=== PATIENT | female | born 1970 | race Caucasian/White ===

== ENCOUNTER 2024-02-22 17:15 | Emergency (ER) | payer BC, SELFPAY ==
[2024-02-22 17:17] VITALS: BP 149/92; PULSE 96; RESP 20; TEMP 37; O2SAT 98; BMI 30.2
--- NOTE | 2024-02-22 18:21 | ED.GENADULT ---
HPI - General Adult General Chief complaint: Neck Injury/Pain Stated complaint: Pain in neck/L arm Time Seen by Provider: 02/22/24 17:20 Source: patient Mode of arrival: ambulatory Limitations: no limitations History of Present Illness HPI narrative: Patient is a 53-year-old woman who presents for evaluation of pain in her left neck and trapezius. She says she woke up with just a twinge of pain and then shortly after getting up the pain got much worse. It is localized to this area for the most part. She has a little radiation just into the shoulder and shoulder blade. She is holding her head very still. She is able to turn a little bit to the right but turning it to the left worsens her pain. She says she has a lot of anxiety about moving her head at all because it increases the pain. She denies trauma. She does not have radicular symptoms, no weakness or numbness. She tried some ibuprofen and it did not relieve the pain. She has not had fevers or other systemic complaints. Related Data Home Medications Medication Instructions Recorded Confirmed Prilosec 02/22/24 Vitamin D (with calcium) 02/22/24 Previous Rx's Medication Instructions Recorded diazepam 10 mg tablet (Valium) 10 mg PO QHS PRN #10 tabs 02/22/24 diazepam 10 mg tablet (Valium) 10 mg PO QHS PRN #10 tabs 02/22/24 Allergies Allergy/AdvReac Type Severity Reaction Status Date / Time No Known Drug Allergies Allergy Verified 02/22/24 17:20 Review of Systems Status of ROS: Reports: 6 or more systems reviewed and unremarkable except as noted in History and below Exam Narrative: Exam Narrative: Vital signs as noted above. In general, an alert, tearful woman. Head: Normocephalic, atraumatic. Eyes: Pupils are equal reactive. Extraocular movements are full. Conjunctivae are normal. ENT: Mucous membranes are moist. Throat is normal. Neck: She holds her head fairly still, slightly cocked to the right. She has reproducible tenderness along the paracervical musculature in the lower left neck into the trapezius muscle on the left. There is palpable muscle spasm there. Heart: Regular rate and rhythm. No murmur or rub. Lungs: Clear bilaterally. No increased work of breathing, crackles or wheezes. Extremities: Well perfused. No edema. Pulses intact. Neurologic: Patient is alert and oriented to person and place. Speech is fluent. Face is symmetric. Moves all extremities equally. Strength is 5 of 5 throughout both upper extremities, sensation is intact to light touch. Affect: Normal. Skin: Warm and dry. Well perfused. No rash or lesion. Const: Vital Signs, click to edit/add: Vital Signs - 24 hr 02/22/24 17:17 Temperature 98.6 F Pulse Rate [Pulse Oximeter] 96 Respiratory Rate 20 Blood Pressure [Ri ght Upper Arm] 149/92 H Pulse Oximetry 98 Oxygen Delivery Me thod Room Air Documenting provider has reviewed patient's vital signs: yes Course Course ED Course: Overall, presentation is consistent with torticollis. She has not had any trauma, I do not think imaging is warranted. There is no evidence here of infection, no midline pain or tenderness, no radicular symptoms. She has palpable muscle spasm, and I think conservative treatment with nonsteroidals and muscle relaxers is an appropriate start. Discussed with her it typically takes at least a few days for these kinds of symptoms to significantly improve. She felt like she might feel better in a neck collar so we have given her a soft cervical collar to wear. I have recommended ibuprofen 400 mg plus Tylenol 1000 mg 3 times daily, and then I gave her prescription for Valium, recommended use of this at night primarily, can be used during the day but of less likely benefit and may cause sedation. If not improving over the next few days to week, she should be seen by her primary doctor. Return at any time to the emergency department for significant changes such as fever, weakness, numbness, etcetera. Vital Signs Vital signs: Initial Vital Signs Temperature 98.6 F 02/22/24 17:17 Temperature Source Temporal Artery Scan 02/22/24 17:17 Pulse Rate 96 02/22/24 17:17 Respiratory Rate 20 02/22/24 17:17 Blood Pressure 149/92 H 02/22/24 17:17 Blood Pressure Mean 111 H 02/22/24 17:17 Blood Pressure Position Sitting 02/22/24 17:17 Pulse Oximetry 98 02/22/24 17:17 Oxygen Delivery Method Room Air 02/22/24 17:17 Vital Signs Temperature 98.6 F 02/22/24 17:17 Pulse Rate 96 02/22/24 17:17 Respiratory Rate 20 02/22/24 17:17 Blood Pressure 149/92 H 02/22/24 17:17 Pulse Oximetry 98 02/22/24 17:17 Oxygen Delivery Method Room Air 02/22/24 17:17 Temperature 98.6 F 02/22/24 17:17 Pulse Rate 96 02/22/24 17:17 Respiratory Rate 20 02/22/24 17:17 Blood Pressure 149/92 H 02/22/24 17:17 Pulse Oximetry 98 02/22/24 17:17 Oxygen Delivery Method Room Air 02/22/24 17:17 Discharge Plan Discharge Clinical Impression: Acute torticollis Patient Disposition: Home, Self-Care Condition: Stable Instructions: Spasmodic Torticollis (ED) Additional Instructions: Ibuprofen 400 mg plus Tylenol 1000 mg 3 times daily. Valium at night for muscle relaxation and sleep. You can use this during the day, but it will likely not provide as much benefit and may be sedating. Continue with heat and or ice, consider massage. Topical products such as [place] balm, Rajinder-Chairez etcetera may be helpful as well. See your primary doctor if not gradually improving over the next week. For acute changes such as severe pain in your arm, weakness, numbness, fevers, return to the emergency department. Prescriptions: New diazepam [Valium] 10 mg tablet 10 mg PO QHS PRNQty: 10 0RF diazepam [Valium] 10 mg tablet 10 mg PO QHS PRNQty: 10 0RF Continued Prilosec Vitamin D (with calcium) Follow Up/Referrals: Lyndon Spivey MD [Primary Care Provider] - Stand Alone Forms: [employer] Info Instructions
== END 2024-02-22 18:01 | disposition home or self-care (01) ==
PROVIDERS: Emergency Provider Emergency Medicine; PCP Family Medicine
DX: M43.6 Torticollis (principal)
CPT/HCPCS: 99283; 99284

== ENCOUNTER 2024-12-26 08:00 | Outpatient (RCR) | payer BC, SELFPAY ==
--- OUTSIDE RECORDS SUMMARY | 2024-10-27 08:01 | XMS_ITS | Clinical Summary ---
Author Organization [facility] Address [address] [place] [address] Care Team Providers Care Deputy Program Manager Name Role Phone Lyndon Spivey MD Primary Care Provider [phone] Source Comments You are receiving this document as you are listed as the primary care provider,follow-up provider, or the patient has been referred to you for consultation.This is in compliance with the Medicare and[facility] EHR Incentive Program,which states Providers who transition their patient to another setting of careor provider of care or refers their patient to another provider of care shouldprovide summary care record for each transition of care or referral. [facility] Allergies Active Allergy Reactions Criticality Noted Date Comments Escitalopram Oxalate Other, see comments 2002 PN: Dizziness, sweating Gabapentin Hives 09/13/2015 Oxycodone-Acetaminophen Nausea And Vomiting 12/2002 Medications Medication Sig Dispensed Refills Start Date End Date Status fluticasone (AKA FLONASE) 50 MCG/ACT nasal solutionIndicatio ns:Nausea alone Place 2 sprays into each nostril daily (every 24 hours). 48 g 1 04/04/2015 Active Additional Information Patient not taking.Reported on 01/01/2020 omeprazole (PRILOSEC) 20 MG capsule TAKE 1 CAPSULE BY MOUTH DAILY(EVERY 24 HOURS) 90 capsule 0 08/12/2015 Active ondansetron (AKA ZOFRAN) 4 MG tabletIndications :[place]OR[place] WAN Fri Sep 13, 2015 3:17 PM Received from: [employer] Take 4 mg by mouth. 02/24/2011 Active HYDROcodone-aceta minophen (NORCO) 5-325 MG tablet Take 1-2 tablets by mouth every 6 hours as needed for Pain. 12 tablet 0 10/02/2015 Active Additional Information Patient not taking.Reported on 11/14/2019 nicotine (NICOTROL) 10 MG inhaler Inhale every 4 hours as needed. 1 cartridge by freq cont puffing for about 20min.Use 6-16 cartridges/day for12 wks.Reduce gradually 12 more wks if needed. Active cholecalciferol (VITAMIND3) 50 MCG (2000 UT) tablet Take 1 Tablet (2,000 Units) by mouth daily. Active alendronate (FOSAMAX) 70 MG tablet Take 1 Tablet (70 mg) by mouth once every week. 12/14/2022 Active VITAMIN B COMPLEX-C OR Active amoxicillin-clavu lanate (AUGMENTIN) 875-125 mg per tablet Take 1 Tablet by mouth two times a day for 7 days. 14 Tablet 10/26/2024 11/02/2024 Active Active Problems Problem Noted Date Diagnosed Date Ureteral stone 10/19/2019 Overview (10/19/2019): Added automatically from request for surgery [id number] Ureterolithiasis 10/13/2019 Overview (10/13/2019): Added automatically from request for surgery [id number] Tobacco use 09/13/2015 Urinary urgency 06/14/2014 Chronic low back pain 06/14/2014 Cervical high risk human pap illomavirus (HPV) DNA test positive 05/06/2013 Chronic sinusitis 02/25/2012 Nausea without vomiting 02/25/2012 Overview (06/16/2017): Nausea alone Hyperlipemia 02/25/2012 Esophageal reflux 03/31/2003 Overview (06/16/2017): Gastroesophageal Reflux Disease Endometriosis 03/31/2003 Overview (06/16/2017): Endometriosis NOS Migraine 03/31/2003 Overview (06/16/2017): Migraine Without Aura History of renal stone Resolved Problems Problem Noted Date Diagnosed Date Resolved Date Pain in limb 01/03/2004 05/18/2005 Overview (06/16/2017): LW Onset: 2002 ; Pain Leg Encounters Date Type Department Care Team Description 10/26/2024 5:40 PM MANAGER PULMONARY Office Visit [facility] [address] [place] [address] Olivia Tanner PA-C Acute non-recurrent pansinusitis from Last 3 Months Immunizations Name Administration Dates Next Due Flu Vac Preserv Free (3+yrs) 08/08/2012 TDAP (BOOSTRIX) 07/24/2014 Family History Medical History Relation Name Comments Cancer, Breast Paternal Grandmother Cancer, Ovary Negative Family History Relation Name Status Comments Father Alive Mother Alive Brother Alive Maternal Grandfather Maternal Grandmother Paternal Grandfather Paternal Grandmother Social History Tobacco Use Types Packs/Day Years Used Date Smoking Tobacco: Former Cigarettes 0.5 20 Smokeless Tobacco: Never Tobacco Cessation:Counseling Given: Not Answered Comments:Smoking History Packs/day: Alcohol Use Standard Drinks/Week Comments Yes 2 (1 standard drink = 0.6 oz pure alcohol) Alcoholic Drinks/day: Amount:1-2 drinks; Freq:=< Monthly; Sex and Gender Information Value Date Recorded Sex Assigned at Not on file Gender Identity Not on file Sexual Orientation Not on file Last Filed Vital Signs Vital Sign Reading Time Taken Comments Blood Pressure 151/87 10/26/2024 5:31 PM MANAGER PULMONARY Pulse 94 10/26/2024 5:31 PM MANAGER PULMONARY Temperature 37.2 C (98.9 F) 10/26/2024 5:31 PM MANAGER PULMONARY Respiratory Rate 18 10/26/2024 5:31 PM MANAGER PULMONARY Oxygen Saturation 99% 10/26/2024 5:31 PM MANAGER PULMONARY Inhaled Oxygen Concentration - - Weight 66.7 kg (147 lb) 10/19/2019 10:43 AM MANAGER PULMONARY Height 154.9 cm (5' 1) 10/19/2019 10:43 AM MANAGER PULMONARY Body Mass Index 27.78 10/19/2019 10:43 AM MANAGER PULMONARY Plan of Treatment Health Maintenance Due Date Last Done Comments Hep B Screening ([employer]) 1970 HIV Screening (Preventive Services) 1985 Adult Preventive Visit 1987 HepB (1) 1988 Colonoscopy 06/15/2016 06/15/2011 (Completed) Cervical Cancer Screening 09/13/20182014, 07/24/2014, 07/02/2014, Additional history exists Cholesterol 07/24/2019 07/24/2014, 04/25, 02/25/2012, Additional history exists Mammogram 09/16/2023 09/16/2022, 08/26, 08/27/2020, Additional history exists Influenza (#1) 2024 07/30/2021, 06/26, 08/14/2019, Additional history exists DTaP/Tdap/Td (3 - Tdap) 07/24/2024 07/24/2014, 02/20 Hep C Screening (Preventive Services) Completed 07/15/1999 Zoster/Shingles Completed 11/24/2019, 04/28/2019 COVID-19 Vaccine Completed 09/04/2024, 11/2022, 07/18/2022, Additional history exists HepA Aged Out No longer eligi ble based on patient's age to complete this topic Hib Aged Out No longer eligi ble based on patient's age to complete this topic IPV (Polio) Aged Out No longer eligi ble based on patient's age to complete this topic MCV4 Aged Out No longer eligi ble based on patient's age to complete this topic Pneumococcal Aged Out No longer eligi ble based on patient's age to complete this topic Medical Devices Implanted Type Area Paving Inspector Device Identifier Shelf Expiration Date Model / Serial / Lot Stent Ureteral [place] 6fr 24cm - [id number] Implanted:Qty: 1 on 10/13/2019 by Lino John MD at [facility] DEVICE Right: [employer] 11/02/2023 [id number] / 0000 / [id number] Stent Ureteral Inlay 6fr 24cm - [id number] Implanted:Qty: 1 on 11/09/2019 by Lino John MD at [facility] DEVICE Right: [employer] 10/07/2023 [id number] / / [id number] Procedures Procedure Name Priority Date/Time Associated Diagnosis Comments MM MAMMOGRAM SCREENING BILAT W CAD Routine 10/17/2015 11:12 AM MANAGER PULMONARY Breast screening ANATOMICAL PATH LIQUID BASED Routine 09/13/2015 3:41 PM MANAGER PULMONARY LIPID PANEL & DIRECT LDL (IF NEEDED) Routine 07/24/2014 11:21 AM CDT Screening for lipoid disorders HEPATITIS C ANTIBODY, WITH REFLEX Routine 07/15/1999 5:31 PM CDT from Last 3 Months or Most Recently Relevant to Health Maintenance Results * MM Mammogram Screening Bilat W CAD (10/17/2015 11:12 AM MANAGER PULMONARY) Anatomical Region Laterality Modality Breast Bilateral Mammography Impressions 10/17/2015 11:14 AM MANAGER PULMONARY : BI-RADS 1 Negative (overall) Follow Up Mammogram in 1 year - Bilateral The results and recommendations of this examination will be communicated to the patient by the [facility] and we will attempt to schedule any recommended imaging follow up with the patient. Narrative 10/17/2015 11:14 AM MANAGER PULMONARY Compared to: 05/31/2013 MM Mammogram Screening Bilateral W Cad, 02/12/2010 MM MAMMOGRAM DIGITAL SCRN W CAD Bilateral Breast Findings: Bilateral digital screening mammogram was performed. The breasts are heterogeneously dense, which may obscure small masses. No significant mass, calcifications or other abnormalities are seen in either breast. Procedure Note Daniel Maldonado MD - 06/24/2016 Compared to: 05/31/2013 MM Mammogram Screening Bilateral W Cad,02/12/2010 MM MAMMOGRAM DIGITAL SCRN W CAD Bilateral Breast Findings: Bilateral digital screening mammogram was performed. The breasts are heterogeneously dense, which may obscure small masses. No significant mass, calcifications or other abnormalities are seen in either breast. IMPRESSION : BI-RADS 1 Negative (overall) Follow Up Mammogram in 1 year - Bilateral The results and recommendations of this examination will be communicated to the patient by the [facility] and we will attempt to schedule any recommended imaging follow up with the patient. Royce Nava MD RAD KRISTIN * Pap Smear (09/13/2015 3:41 PM MANAGER PULMONARY) 09/13/2015 3:41 PM MANAGER PULMONARY Narrative HP CONVERSION - 09/23/2015 3:54 PM MANAGER PULMONARY FINAL GYNECOLOGICAL CYTOLOGY REPORT Pathology #: [id number] Date Obtained: 09/13/2015 Date Received: 09/16/2015 INTERPRETATION/RESULTS: Negative for Intraepithelial Lesion or Malignancy. SPECIMEN ADEQUACY: Satisfactory for Evaluation. Endocervical cells/transformation zone component present. Verified on 09/23/2015 by YOEL DÍAZ MD (electronic signature) CLINICAL NOTES: Abnormal bleeding: No, LMP: 08/25/15, Menstrual status: None Apply, Current form of therapy: None apply LIQUID BASED PAP SMEAR SPECIMEN TYPE: DIAGNOSTIC CERVICAL PAP TEST PLEASE NOTE: The pap smear is a screening test designed to aid in the detection of cervical cancer and its precursor lesions. It is not a diagnostic procedure and should not be used as the sole means of detecting cervical cancer. Both false-positive and false-negative reports may occur. End of Report Performed at [facility], [address] [place] [address] Transcriptions 12/03/2016 12:17 AM CSTNotes Recorded by Ainsley Watkins, NOÉ on 10/04/2015 at 11:50 AMDear Niurka,I am writing to let you know that your PAP and HPV result is negative. This means that your test result was normal. No cancer or precancerous cells were seen.Based on current cervical cancer screening recommendations, your next PAP and HPV should be in 3 years. Continue to schedule your annual preventive exams for your overall health.If you have questions about cervical cancer screening or your test results, callCervical Cancer Screening and Management [phone],Ainsley Watkins, RN on behalf ofDr. Shantel Clark, Medical DirectorOhiohealth Dublin Methodist Hospitalnathalia [place] Cervical Cancer Screening and Management Royce Nava MD LAB_1 HP CONVERSION * (ABNORMAL) Lipid Panel and Direct LDL(If Needed) (07/24/2014 11:21 AM CDT) Cholesterol 221(H) 0 - 200 mg/dL HP CONVERSION Triglycerides 226(H) 0 - 149 mg/dL HP CONVERSION HDL Cholesterol 44 >39 mg/dL HP CONVERSION Cholesterol/HDL Ratio Screen 5.0 HP CONVERSION LDL Calculated 132(H) 19 - 130 mg/dL HP CONVERSION Hours Fasting 12 HP CONVERSION 07/24/2014 11:2 1 AM CDT 07/24/2014 3:14 PM CDT Kin Isaac MD LAB_1 HP CONVERSION * Hepatitis C Antibody, with Reflex (07/15/1999 5:31 PM CDT) Hepatitis C Antibody Non Reac Non Reac HP CONVERSION 07/15/1999 5:31 PM CDT Nicolas Robles MD LAB_1 HP CONVERSION from Last 3 Months or Most Recently Relevant to Health Maintenance Advance Directives * Full Code (Latest Code Status on File) Date Activated Date Inactivated Comments 10/13/2019 1:30 PM 10/14/2019 2:34 PM Care Teams Deputy Program Manager Relationship Specialty Start Date End Date Lyndon Spivey MD [address] [place] [address] PCP - General 09/13/15
--- OUTSIDE RECORDS SUMMARY | 2024-10-27 08:01 | XMS_ITS | Continuity of Care Document ---
Author Name [facility] User [facility] Address Unknown Organization Unknown Address Unknown Alerts, Allergies and Adverse Reactions FILTER APPLIED:All Known Active Allergies Substance Reaction Onset Status (GABAPENTIN) HIVES (Severe), Pruritis (Severe) 2014 Active (ESCITALOPRAM) Nausea (Mild), Unknown (Mild) Active (OXYCODONE-ACETAMINOPHEN) Nausea (Mild) A ctive Procedures FILTER APPLIED:Only known Procedures with Onset Date within the last 5 years Procedure Date Procedure Provider Additional Inform ation Status CALCIUM (05349) Complete d CREATININE (71050) Compl eted EMERGENCY DEPT VISIT LOW MDM (10859) Completed Encounters FILTER APPLIED:Only known Encounters with Admission Date within the last 5 years Encounter Location Admission Discharge Billing Code Creative Writing Teacher A [facility]ender Emergency [facility] [id number] [facility] Unknown [id number] [facility]
--- OUTSIDE RECORDS SUMMARY | 2024-10-27 08:01 | XMS_ITS | Encounter Summary ---
Author Organization [employer] Address [address] [place] [address] Care Team Providers Care Grant Officer Name Role Phone Lyndon Spivey MD Primary Care Provider [phone] Reason for Visit * Reason Comments CONGESTION, SINUS Encounter Details Date Type Department Care Team (Late st Contact Info) Description 10/26/2024 5:40 PM EAR[employer]UC[employer] WORK[employer] Office Visit [facility] [address] [place] [address] Olivia Tanner, PA-C [address] [place] [address] Acute non-recurrent pansinusitis Social History Tobacco Use Types Packs/Day Years Used Date Smoking Tobacco: Former Cigarettes 0.5 20 Smokeless Tobacco: Never Comments:Smoking History Pac ks/day: Alcohol Use Standard Drinks/Week Comments Yes 2 (1 standard drink = 0.6 oz pure alcohol) Alcoholic Drinks/day: Amount:1-2 drinks; Freq:=< Monthly; Sex and Gender Information Value Date Recorded Sex Assigned at Not on file Gender Identity Not on file Sexual Orientation Not on file documented as of this encounter Last Filed Vital Signs Vital Sign Reading Time Taken Comments Blood Pressure 151/87 10/26/2024 5:31 PM E[employer] WORKER Pulse 94 10/26/2024 5:31 PM EAR[employer]IL[employer] WORKER Temperature 37.2 C (98.9 F) 10/26/2024 5:31 PM EAR[employer]ILDHO[employer]UCATION WORKER Respiratory Rate 18 10/26/2024 5:31 PM E[employer]UC[employer] WORKER Oxygen Saturation 99% 10/26/2024 5:31 PM EAR[employer]UC[employer] WORKER Inhaled Oxygen Concentration - - Weight - - Height - - Body Mass Index - - documented in this encounter Progress Notes * Olivia Tanner PA-C - 10/26/2024 5:40 PM CST SUBJECTIVE: Niurka Hardy is a 54 y.o.female who presents to clinic with concern for nasal congestion and drainage with sinus pain and pressure symptoms started 10 days ago and are worsening. She didhave possible fevers initially none since then. She also has had hoarseness to her voice. She has had a COVID test at home which was negative she has also been using [id number] cough suppressant of choice. States that she has had numerous sinus infections before and it feels similar to but ithas been quite awhile since she did have a sinus surgery with good success. She has been trying [id number] medicine without relief Social history: Social History Tobacco Use Smoking status: Former Current packs/day: 0.50 Average packs/day: 0.5 packs/day for 20.0 years (10.0 ttl pk-yrs) Types: Cigarettes Smokeless tobacco: Never Tobacco comments: Smoking History Packs/day: Vaping Use Vaping status: Never Used Substance Use Topics Alcohol use: Yes Alcohol/week: 2.0 standard drinks of alcohol Types: 2 Glasses of wine per week Comment: Alcoholic Drinks/day: Amount:1-2 drinks; Freq:=< Monthly; Drug use: No Past Medical History: Past Medical History: Diagnosis Date Cervical high risk human papillomavirus (HPV) DNA test positive 05/06/2013 Endometriosis GERD (gastroesophageal reflux disease) History of renal stone Ovarian cyst STD (sexually transmitted disease) ([facility]) 2013 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 A&O x3. Skin: MMM, no rashes Eyes: Sclera white, conjunctiva pink, cornea and lenses are clear. PERRLA, EOMI bilaterally fundi are benign bilaterally Nose: Congested Sinuses: Bilateral frontal and maxillary sinuses are tender to percussion. No obvious swelling. Ears: Canals normal without lesions. TMs: Pearly spring, bulging with serous fluid Pharynx: Moist mucous membranes without lesions, erythema, or exudate, with purulent postnasal drainage. Neck: Supple, no LAD Respiratory: Normal respiratory effort. Lungs are clear with good breath sounds. Heart: RR without murmurs, rubs, or gallops. Labs: @EDLABS@ Orders Placed This Encounter amoxicillin-clavulanate (AUGMENTIN) 875-125 mg per tablet ASSESSMENT: 1. Acute non-recurrent pansinusitis PLAN: I discussed my findings and concerns of the patient I explained that I do think she has a sinus infection we will treat with antibiotics patient was put on Augmentin twice daily for 7 days. Sinus irrigation was discussed. Use OTC analgesics, oral decongestants, and decongestant nasal spray (maximum4 days, side effects discussed). Decrease dairy products while congested. Hot shower prior to bed time. RTC PRN if not gradually improving. The patient was discharged ambulatory and in stable condition. @EDMEDS@ Medications Prescribed this Visit Disp Refills Start End amoxicillin-clavulanate (AUGMENTIN) 875-125 mg per tablet 14 Tablet 0 10/26/2024 11/02/2024 Take 1 Tablet by mouth two times a day for 7 days. Oral Discharge Instructions None [employer] documented in this encounter Nursing Notes * Anand Patton RN - 10/26/2024 5:40 PM CST Pt c/o nasal pressure, sinus pressure, headache, and fevers at nighttime Sx for 1.5 weeks started off as a ST that has now turned into loss of voice Negative at home covid test OTC-cough syrup [employer] WORK[employer] documented in this encounter Plan of Treatment Not on file documented as of this encounter Visit Diagnoses Diagnosis Acute non-recurrent pansinusitis documented in this encounter Care Teams Grant Officer Relationship Specialty Start Date End Date Lyndon Spivey MD [address] [place] [address] PCP - General 09/13/15 documented as of this encounter
--- OUTSIDE RECORDS SUMMARY | 2024-10-27 08:01 | XMS_ITS | Clinical Summary ---
Author Organization [employer] [facility] Address [place], [place] [address] Care Team Providers Care Refrigeration Tech Name Role Phone Lyndon Spivey MD Primary Care Provider Dorothy Santiago MD Unavailable [phone] Monika Gamez NP Unavailable Chioma Salcido Unavailable Allergies Active Allergy Reactions Criticality Noted Date Comments Escitalopram Oxalate Nausea Only 11/04/2015 Dizziness, sweating Dizziness, sweating Gabapentin Itching,Hives 09/13/2015 Oxycodone *Unknown 08/02/2020 Oxycodone-Acetaminophen Nausea And Vomiting 12/2002 Medications Omeprazole 20 mg tablet Take 1 tablet by mouth once daily. 0 9 Active cholecalciferol (VITAMIN D-3) 2,000 unit capsuleIndications :Vitamin D insufficiency Take 1 capsule by mouth once daily. 0 0 Active ondansetron (ZOFRAN) 4 mg tablet Take 4 mg by mouth. 1 Active Active Problems Problem Noted Date Diagnosed Date Pap smear for cervical cancer screening 06/30/20 22 Overview (06/30/2022): 02/2012, 04/2013 NIL/HPV+ 06/2014 NIL/HPV+, 16/18 negative 06/2014 [place]elope: Atypical squamous metaplasia, not fully diagnostic of dysplasia; ECC:negative 08/2015, 12/2016, 03/2022 NIL/HPV negative Plan: Pap/HPV due 03/2027 Adrenal nodule 06/17/2022 Age-related osteoporosis wit hout current pathological fracture 05/12/2022 Osteoporosis 04/28/2022 Insomnia secondary to chronic pain 09/13/2015 Annular tear of lumbar disc 07/11/2015 Hyperlipidemia 06/14/2015 Midline low back pain without sciatica 5 Tobacco use disorder 05/23/2015 Right ovarian cyst 02/23/2011 Overview (02/23/2011): Hemorrhagic - right Kidney stone on right side 02/22/2011 Depression 02/22/2011 GERD (gastroesophageal reflux disease) 1 Encounters Date Type Department Care Team Description 09/25/2024 1:42 PM OPERATOR SUPPLY - 09/25/2024 11:59 PM OPERATOR SUPPLY Hospital Encounter [facility] [address] [place] [address] Chioma Salcido MBBS Osteoporosis, unspecified osteoporosis type, unspecified pathological fracture presence (Primary Dx); Age-related osteoporosis without current pathological fracture 09/25/2024 1:29 PM OPERATOR SUPPLY - 09/25/2024 1:41 PM OPERATOR SUPPLY Hospital Encounter [facility] [address] [place] [address] Richard Salcido MD Acharya, Nisha, MBBS Osteoporosis, unspecified osteoporosis type, unspecified pathological fracture presence 09/25/2024 Travel 08/21/2024 9:15 AM CDT Ancillary Procedure [facility] [address] [place] [address] 08/21/2024 9:00 AM CDT Ancillary Procedure [facility] [address] [place] [address] 08/21/2024 Travel 08/16/2024 Orders Only [facility] [address] [place] [address] Manoj Vela MD <No scans attached> 08/14/2024 8:00 AM CDT Office Visit [facility] [address] [facility] [address] [place] [address] Chioma Salcido MBBS Follow Up (Annual osteoporosis ) 08/14/2024 Travel from Last 3 Months Immunizations Name Administration Dates Next Due COVID-19 vaccine (Moderna Sammy ro 50mcg/0.25mL) PF, MDV 01/25/2022 COVID-19 vaccine (Pfizer-Bio NTech 30mcg/0.3mL) PF, MDV 02/08/2021,01/18/2021 Influenza Virus, Unspecified 07/23/2020 Influenza, IIV3 (Age >=3 years) 08/14/20 19,08/15/2014,08/16/2013,2011,08/17/2011,08/25/2010 Influenza, IIV4 07/30/2021,08/03/2016 Influenza, IIV4 (=>6mos) MDV 08/24/2017,08/14/20 15 Tdap 07/24/2014,02/21/2008 Zoster (Shingrix-RZV, recombinant) 11/24/2019, Family History Medical History Relation Name Comments Nephrolithiasis Brother Benign prostatic hyperplasia Father No Known Problems Mother Heart Disease Other maternal side, uncles and aunts Cancer-breast Paternal Grandmother Anesthesia Malignant Hyperthermia No Family History Anesthesia Problem No Family History Relation Name Status Comments Brother Alive Father Alive Mother Alive Other Paternal Grandmother Social History Tobacco Use Types Packs/Day Years Used Date Smoking Tobacco: Former Cigarettes 0.3 29.2 S tarted: 08/02/1995 Smokeless Tobacco: Never Tobacco Cessation:Counseling Given: Yes Alcohol Use Standard Drinks/Week Comments Not Currently 0 (1 standard drink = 0.6 oz pur e alcohol) PHQ-2 Answer Date Recorded PHQ-2 TOTAL SCORE 0 04/22/2022 Financial Resource Strain Answer Date R ecorded Difficulty of Paying Living Expenses Not on file 10/25/2021 Difficulty of Paying Living Expenses Not on file 10/25/2021 Interpersonal Safety Answer Date Record ed Are you being hit, kicked, p ushed or yelled at (see row info)? No 09/25/2024 Interpersonal Safety Abuse 12 - 18 Not on file 09/25/2024 Interpersonal Safety Ambulatory Vulnerability No t on file 09/25/2024 Comments No Sex and Gender Information Value Date Recorded Sex Assigned at Female 04/25/2020 11:24 AM CDT Legal Sex Female 6:03 AM OPERATOR SUPPLY Gender Identity Female 04/25/2020 11:24 AM CDT Sexual Orientation Straight 04/25/2020 11 :24 AM CDT Obstetrics History Para Term AB IAB SAB Ectopic Multiple Livin g Live Births 1 1 1 Date Outcome GA Total Labor Labor/2nd/3rd Weight Sex Type Anes PTL Lucille A1 A5 Name Clin SAB SPONTANE O US Last Filed Vital Signs Vital Sign Reading Time Taken Comments Blood Pressure 127/74 09/25/2024 2:34 PM OPERATOR SUPPLY Pulse 95 09/25/2024 2:34 PM OPERATOR SUPPLY Temperature 37.2 C (99 F) 09/25/2024 2:34 PM OPERATOR SUPPLY Respiratory Rate 16 09/25/2024 2:34 PM OPERATOR SUPPLY Oxygen Saturation 97% 09/25/2024 2:34 PM OPERATOR SUPPLY Inhaled Oxygen Concentration - - Weight 68.9 kg (152 lb) 08/14/2024 8:01 AM CDT Height 154.9 cm (5' 1) 09/25/2024 2:00 PM OPERATOR SUPPLY Body Mass Index 28.72 05/24/2023 9:03 AM CDT Plan of Treatment Upcoming Encounters Date Type Department Care Team (Late st Contact Info) Description 08/15/2025 8:15 AM CDT Office Visit [facility] [address] [facility] [address] [facility] [[email or web address] [address] [place] [address] Chioma Salcido MBBS [address] [facility] [address] [facility] [[email or web address] [address] [place] [address] Health Maintenance Due Date Last Done Comments HIV for age 15-65 1984 Pneumococcal series for age 50+ (1 of 1 - PCV) 2019 Depression screening for age 12+ 04/22/2023 04/22/2022, 04/23/2021, 04/22/2021, Additional history exists Mammogram for age 45-75 09/16/2023 09/16/20 22, 09/15/2021, 08/27/2020, Additional history exists BMI (ht and wt on same day) for age 18+ 05/24/2024 05/24/2023, 04/22/2022, 04/23/2021, Additional history exists Influenza for age 50-64 06/25/2024 07/30/20 21, 07/23/2020, 08/14/2019, Additional history exists Tetanus booster 07/24/2024 07/24/2014, 02/21/2008 Lipids for age 45-75 03/03/2027 03/03/2022, 08/26/2021, 05/01/2021, Additional history exists Pap test for age 21-65 04/22/2027 , 04/22/2022, 01/11/2017, Additional history exists Colonoscopy through age 75 02/17/2028 02/16/2023, Tdap Completed 07/24/2014, 02/21/2008 Zoster (shingles) series for age 50+ Completed 11/24/2019, 04/28/2019 Hepatitis C screening for ag e 18-79 Completed 08/26/2021 COVID-19 vaccine series Completed 09/04/20, 07/26/2023, 07/18/2022, Additional history exists Procedures Procedure Name Priority Date/Time Associated Diagnosis Comments CREATININE STAT 09/25/2024 1:36 PM OPERATOR SUPPLY Osteoporosis, unspecified osteoporosis type, unspecified pathological fracture presence CALCIUM STAT 09/25/2024 1:36 PM OPERATOR SUPPLY Osteoporosis, unspecified osteoporosis type, unspecified pathological fracture presence XR SPINE LUMBAR MINIMUM 4 VIEWS Routine 08/21/2024 9:01 AM CDT Pain of lumbar spine XR SPINE THORACIC 2 VIEWS Routine 08/21/2024 9:00 AM CDT Pain in thoracic spine VITAMIN D 25 (DEFICIENCY) Routine 08/14/2024 8:35 AM CDT Osteoporosis, unspecified osteoporosis type, unspecified pathological fracture presence CREATININE Routine 08/14/2024 8:35 AM CDT Osteoporosis, unspecified osteoporosis type, unspecified pathological fracture presence CALCIUM Routine 08/14/2024 8:35 AM CDT Osteoporosis, unspecified osteoporosis type, unspecified pathological fracture presence SCAN-COLONOSCOPY 02/16/2023 9:00 AM CDT XR MAMMO DEACON BILAT SCREEN Routine 09/16/2022 8:03 AM OPERATOR SUPPLY Encounter for screening for malignant neoplasm of breast, unspecified screening modality HPV HIGH RISK Routine 04/22/2022 1:22 PM CDT Screening for cervical cancer LIPID PANEL W REFLEX MEASURED LDL Routine 03/03/2022 7:57 AM CDT Hypertriglyceridemia ANTI HCV Routine 08/26/2021 10:36 AM CDT Need for hepatitis C screening test from Last 3 Months or Most Recently Relevant to Health Maintenance Results * CREATININE (09/25/2024 1:36 PM OPERATOR SUPPLY) Only the most recent of2 resultswithin the time period is included. eGFR >90 >90 mL/min/1.7 3m2 09/25/2024 2:[address] [facility] Comment:As of 2022, eG FR is calculated by the CKD-EPI creatinine equation without race adjustment. eGFR can be influenced by muscle mass, exercise, and diet. The reported eGFR is an estimation only and is only applicable if the renal function is stable. CREATININE 0.69 0.50 - 0.90 mg/dL 09/25/2024 2:[address] [facility] Blood BLOOD SPECIMEN / Unknown Venipuncture / Unknown 09/25/2024 1:36 PM OPERATOR SUPPLY 09/25/2024 1:38 PM OPERATOR SUPPLY us Chioma PORTILLO CHEMISTRY Final Result [facility] SENDOUT [place] [address]IP [id number] [address] [place] [address] * CALCIUM (09/25/2024 1:36 PM OPERATOR SUPPLY) Only the most recent of2 resultswithin the time period is included. CALCIUM 9.6 8.8 - 10.4 mg/dL 09/25/2024 2:[address] [facility] Comment: Reference ranges for this test were updated on 08/29/2024 to reflect our healthy population more accurately. Reference range changes are not retroactively applied to results, but previous results using the same methodology can be interpreted in the context of the new reference range. Blood BLOOD SPECIMEN / Unknown Venipuncture / Unknown 09/25/2024 1:36 PM OPERATOR SUPPLY 09/25/2024 1:38 PM OPERATOR SUPPLY us Chioma PORTILLO CHEMISTRY Final Result [facility] S[address]OUT [place] [id number] [address] [place] [address] * XR SPINE LUMBAR MINIMUM 4 VIEWS (08/21/2024 9:01 AM CDT) Anatomical Region Laterality Modality Spine, LUMBAR SPINE Digital Radi ography 08/21/2024 12:1 8 PM CDT Impressions 08/21/2024 12:18 PM CDT No acute fracture or acute malalignment of the lumbar spine. No abnormal motion. Dictated by Tito Vargas MD @ 08/21/2024 12:18:46 PM (Electronically Signed) Narrative 08/21/2024 12:18 PM CDT For Patients: As a result of the Cures Act, medical imaging exams and procedure reports are released immediately into your electronic medical record. You may view this report before your referring provider. If you have questions, please contact your health care provider. INDICATION: Pain of the lumbar spine. TECHNIQUE: Four views of the lumbar spine. This includes standing flexion and extension lateral views. FINDINGS: Five lumbar vertebral bodies without acute fractures. No acute malalignment. The disc interspaces are fairly well preserved. No abnormal motion on flexion or extension lateral views. Mild degenerative facet arthropathy mid to lower lumbar spine. Surgical clips right upper quadrant. Procedure Note Tito Vargas MD - 08/21/2024 For Patients: As a result of the s Act, medical imagingexams and procedure reports are released immediately into your electronicmedical record. You may view this report before your referring provider.If you have questions, please contact your health care provider. INDICATION: Pain of the lumbar spine. TECHNIQUE: Four views of the lumbar spine. This includes standing flexion andextension lateral views. FINDINGS: Five lumbar vertebral bodies without acute fractures. No acutemalalignment. The disc interspaces are fairly well preserved. No abnormalmotion on flexion or extension lateral views. Mild degenerative facetarthropathy mid to lower lumbar spine. Surgical clips right upperquadrant. IMPRESSION: No acute fracture or acute malalignment of the lumbar spine. No abnormalmotion. Dictated by Tito Vargas MD @ 08/21/2024 12:18:46 PM (Electronically Signed) Manoj Vela MD GENERAL IMAGING Final Result * XR SPINE THORACIC 2 VIEWS (08/21/2024 9:00 AM CDT) Anatomical Region Laterality Modality Spine, THORACIC SPINE Digital Ra diography 08/21/2024 12:2 0 PM CDT Impressions 08/21/2024 12:20 PM CDT Postsurgical change lower cervical spine to T6 with posterior fusion rods. Mild upper thoracic kyphosis. Dictated by Tito Vargas MD @ 08/21/2024 12:20:56 PM (Electronically Signed) Narrative 08/21/2024 12:20 PM CDT For Patients: As a result of the Cures Act, medical imaging exams and procedure reports are released immediately into your electronic medical record. You may view this report before your referring provider. If you have questions, please contact your health care provider. INDICATION: Thoracic spine pain. Prior surgery. TECHNIQUE: Two views of the thoracic spine. COMPARISON: Correlation is made with x-rays of the chest May 24, 2023. FINDINGS: Postsurgical change from posterior cervical thoracic fusion extending to the posterior elements of T6. No acute malalignment. Mild upper thoracic kyphosis. No acute compression fracture. No acute malalignment. Surgical clips in the right upper quadrant. Procedure Note Tito Vargas MD - 08/21/2024 For Patients: As a result of the Cures Act, medical imagingexams and procedure reports are released immediately into your electronicmedical record. You may view this report before your referring provider.If you have questions, please contact your health care provider. INDICATION: Thoracic spine pain. Prior surgery. TECHNIQUE: Two views of the thoracic spine. COMPARISON: Correlation is made with x-rays of the chest May 24, 2023. FINDINGS: Postsurgical change from posterior cervical thoracic fusion extending tothe posterior elements of T6. No acute malalignment. Mild upper thoracic kyphosis. No acute compressionfracture. No acute malalignment. Surgical clips in the right upper quadrant. IMPRESSION: Postsurgical change lower cervical spine to T6 with posterior fusion rods.Mild upper thoracic kyphosis. Dictated by Tito Vargas MD @ 08/21/2024 12:20:56 PM (Electronically Signed) Manoj Vela MD GENERAL IMAGING Final Result * VITAMIN D 25 (DEFICIENCY) (08/14/2024 8:35 AM CDT) VITAMIN D,25-OH,TOTAL,IA 82 30 - 100 ng/mL [facility] [place] Comment: Vitamin D Status 25-OH Vitamin D: Deficiency: <20 ng/mL Insufficiency: 20 - 29 ng/mL Optimal: > or = 30 ng/mL For 25-OH Vitamin D testing on patients on D2-supplementation and patients for whom quantitation of D2 and D3 fractions is required, the QuestAssureD(TM) 25-OH VIT D, (D2,D3), LC/MS/MS is recommended: order code 76770 (patients >2yrs). See Note 1 Note 1 For additional information, please refer to http://education.[employer].Keepskor/faq/OCM985 (This link is being provided for informational/ educational purposes only.) Blood BLOOD SPECIMEN / Unknown 08/14/2024 8:35 AM CDT 08/14/2024 8:36 AM CDT Chioma PORTILLO SEND OUTS Final Result [facility] [address] [place] [address], [facility] [address] [place] [address] * SCAN-COLONOSCOPY (02/16/2023 9:00 AM CDT) Narrative Procedure Note Ferdinand Castellano MD - 02/16/2023 7:41 AM CDT [facility], [address], [address], [place] [address] Patient Name: Niurka Hardy Gender: Female Exam Date: 02/16/2023 Visit Number: [id number] Age: 52 Years Date of : 1970 Attending MD: Ferdinand Castellano MD Medical Record#: [id number] Procedure: Colonoscopy Indications: Previous adenomatous polyp(s) Referring MD: Freddie Camargo MD Primary MD: Lyndon Spivey MD Medications: Admitting Medications: Ondansetron Hydrochloride (Zofran) given 4mg by IV Intra Procedure Medications: Patient received monitored anesthesia care. Complications: No immediate complications Procedure: An examination of the heart and lungs was performed and found to be withinacceptable limits. . The patient was therefore deemed a reasonablecandidate for endoscopy and sedation. The risks and benefits of the procedure were explained to the patient.After obtaining informed consent, the patient received monitoredanesthesia care and I passed the scope without difficulty via the rectum to the cecum. The appendiceal orificeand ic valve were identified. The scope was retroflexed during theexamination The quality of the prep was excellent (Florian/Gat/2 Bis). This was a complete examination throughout the entire colon. Findings: Polyp location: ascending colon-proximal. Quantity: 1. Size: 2 mm.Polyp shape: sessile. Maneuver: polypectomy was performed with a cold biopsy forceps. Removal: complete. Retrieval: complete. Bleeding: none. Diverticulosis. Location: - sigmoid. Description: mild. Size:small. Quantity: few. No inflammation present. Remainder of the exam is normal. Impression: Diverticulosis of colon without diverticulitis Colorectal polyp detected on colonoscopy MD impression comments: Mild sigmoid diverticulosis. Small polypresected as above awat path Preliminary Plan: The patient and their physician will receive a copy of the pathologyreport as well as pathology-based recommendations for future screening orsurveillance. Procedure: Upper GI Endoscopy Indications: Dysphagia Reflux Provider: Ferdinand Castellano MD Referring MD: Freddie Camargo MD Primary MD: Lyndon Spivey MD Medications: Admitting Medication: Ondansetron Hydrochloride (Zofran) given 4mg by IV Intra Procedure Medications: Patient received monitored anesthesia care. Complications: No immediate complications Procedure: An examination of the heart and lungs was performed within acceptablelimits. . The patient was therefore deemed a reasonable candidate forsedation. The risks and benefits were explained to the patient, who appeared tounderstand. After obtaining informed consent, the scope was passed underdirect vision. Throughout the procedure the patient's blood pressure,pulse and oxygen saturations were monitored. The scope was introducedthrough the mouth and advanced to the third portion of duodenum. Findings: Esophagus: Normal esophagus. Location: mid esophagus; Maneuver: biopsies were obtained Normal Location: distal esophagus; Maneuver: biopsies were obtained The z-line is 38 centimeters from the incisors. Top of the gastric foldsis 38 centimeters from the incisors. Stomach: The diaphragm hiatus is at 40 centimeters from the incisors. Small Hiatal Hernia. Normal mucosa. Stomach Polyp(s). Location: fundus. Quantity: few. Size: < 5mm. Shape:sessile. Removal: no removal. Duodenum: Normal duodenum. Celiac Sprue biopsies taken. Celiac Sprue biopsies taken. Impression: Hiatal hernia Chronic GERD MD Impression Comments: Patient had dysphagia/discomfort while onalendronate. This was stopped 3 mos ago, but she is still sensitive (notreally dysphagia). Bx'd esophagus for EoE, duodenum for celiac (patientrequest). If symptoms persist we would be happy to see you in clinic Preliminary Plan: Return to primary care provider Pathology Results: A: DUODENUM, BIOPSY: 1. Duodenal intraepithelial lymphocytosis characterized by: a. Patchy, mildly increased intraepithelial lymphocytes b. Normal villous architecture (Byrd 1) 2. See comment B: ESOPHAGUS, DISTAL, BIOPSY: 1. Normal squamous mucosa 2. Negative for reflux changes and eosinophilic esophagitis 3. Negative for columnar mucosa C: ESOPHAGUS, MID, BIOPSY: 1. Normal squamous mucosa 2. Negative for reflux changes and eosinophilic esophagitis 3. Negative for columnar mucosa D: COLON, ASCENDING, POLYP: 1. Tubular adenoma 2. Negative for high grade dysplasia 3. Per the colonoscopy report: a. Polyp size: 2 mm b. Resection: Complete c. Retrieval: Complete COMMENTS A. Duodenal intraepithelial lymphocytosis is an etiologically non- specificfinding; potential causes include celiac disease (gluten sensitiveenteropathy), Helicobacter gastritis, NSAID use, autoimmune disorders,bacterial overgrowth, Crohn's disease (particularly if focal enhancedgastritis is also present) and non-gluten protein intolerance. Less thanhalf of patients with this histologic finding are ultimately found to haveceliac disease. In this case, given the patchy and mild nature of thelymphocytosis, it may represent the upper limit of normal. However, useful avenues for further evaluation of possible celiac diseasecould include: a. Serum IgA level plus anti-TTG, anti-deamidated gliadin peptideand/or anti-endomysial IgA serology b. HLA genotyping (celiac disease is rare if DQ2 and DQ8 absent) c. Family history (celiac disease more likely if family history of celiac disease present) d. A trial of gluten restriction (if symptomatic); symptoms such as diarrhea, anemia may resolve even if serologies are negative) If this is subsequently proven to be celiac disease the findings on thisbiopsy would be consistent with a Byrd 1 lesion. Please contact us if you have questions ([facility] pathology Service, [phone] Specimen A was seen in consultation with Dr. Encarnacion. MICROSCOPIC A: Performed B: Performed C: Performed D: Performed. Deeper levels were examined. SPECIAL STAINING/DEEPER D: Deeper Electronically signed by: Sourav Mcconnell MD Interpreted at [facility] [place] [address] Orders Labs: Test Comments Timeframe Assessment Celiac: TTG IgA + Total IgA send order to [facility] FirstAvailable R10.13 Instruction(s)/Education: Instruction/Education Timeframe Assessment Colon Cancer Prevention K57.30 Colon Polyps K57.30 Diverticulosis/Diverticulitis K57.30 Final Plan: Repeat colonoscopy in 5 years. We will attempt to contact you at appropriate intervals via U.S. mail. Wemay not be able to find you or contact you at that time, therefore youshould know that the responsibility for following our recommendation restswith you. If you don't hear from us at the time your procedure is due,please contact our office to schedule an appointment. If your contactinformation should change, please contact our office so that we can updateyour record. Additional Comments: I would like to do a blood test for celiac disease to follow-up on theinflammation seen on biopsy. _Electronically signed by: Ge Da Silva MD 02/16/2023 cc: Lyndon Spivey MD cc: Freddie Camargo MD cc: Lyndon Spivey MD us Ferdinand Castellano MD OTHER Final R esult * XR MAMMO DEACON BILAT SCREEN (09/16/2022 8:03 AM OPERATOR SUPPLY) Anatomical Region Laterality Modality BREASTS, Breast Left, Breast Right Bilateral Mammography Impressions 09/16/2022 3:40 PM OPERATOR SUPPLY There is no radiographic evidence for malignancy. Recommend annual mammograms. MAMMOGRAM ASSESSMENT: ACR 1 Negative PATIENTS: You will also receive a letter with your examination results in an easy to read format. If you have questions about your results, please contact your referring provider. Narrative 09/16/2022 3:40 PM OPERATOR SUPPLY For Patients: As a result of the 21st Century Cures Act, medical imaging exams and procedure reports are released immediately into your electronic medical record. You may view this report before your referring provider. If you have questions, please contact your health care provider. XR MAMMO DEACON BILAT SCREEN [[id number]] CLINICAL HISTORY: This is an asymptomatic 52 y.o. patient. INDICATION FOR EXAM: Mammogram Screening. TECHNIQUE: CC & MLO views were obtained. This study was evaluated with the assistance of Computer-Aided Detection. Breast Tomosynthesis was used in interpretation. COMPARISON FILM: Yes [facility] FINDINGS: The breasts are heterogeneously dense, which may obscure small masses. There are no dominant masses, suspicious micro calcifications or areas of architectural distortion. Lyndon Spivey MD MAMMO Final Result * HPV HIGH RISK (04/22/2022 1:22 PM CDT) TYPE 16 Negative Negative 04/24/2022 1:52 PM CDT [facility] TYPE 18 Negative Negative 04/24/2022 1:52 PM CDT [facility] OTHER HIGH RISK TYPES Negative Negative 04/24/2022 1:52 PM CDT [facility] Other (Cervical/Vagina l) Non-Blood / Unknown 04/22/2022 1:22 PM CDT 04/23/2022 8:34 AM CDT Narrative [facility] - 04/24/2022 1:52 PM CDT HPV types 16, 18, 31, 33, 35, 39, 45, 51, 52, 56, 58, 59, 66 and 68 DNA were undetectable or below the pre-set threshold. Methodology: Sarina Silvio 4800 HPV Test Shakir Oscar MD MICROBIOLOGY F inal Result [facility] [address] [place] [address], * (ABNORMAL) LIPID PANEL W REFLEX MEASURED LDL (03/03/2022 7:57 AM CDT) CHOLESTEROL,TOTAL 231(H) 100 - 199 mg/dL 03/03/2022 3:29 PM CDT [facility] TRIGLYCERIDES 223(H) <150 mg/dL 03/03/2022 3:29 PM CDT [facility] HDL CHOLESTEROL 43 >40 mg/dL 3:29 PM CDT [facility] NON-HDL CHOLESTEROL 188(H) <145 mg/dl 03/03/2022 3:29 PM CDT [facility] CHOL/HDL RATIO 5.37(H) <4.50 03/03/2022 3:29 PM CDT [facility] LDL CHOLESTEROL 143(H) <=130 mg/dL 03/03/2022 3:29 PM CDT [facility] VLDL CHOLESTEROL 45(H) <=30 mg/dL 03/03/2022 3:29 PM CDT [facility] PROVIDER ORDERED STATUS RANDOM 03/03/2022 3:29 PM CDT [facility] Blood BLOOD SPECIMEN / Unknown Venipuncture / Unknown 03/03/2022 7:57 AM CDT 03/03/2022 7:59 AM CDT us Lyndon Spivey MD CHEMISTRY Final Result [facility] [address] [place] [address], * ANTI HCV (08/26/2021 10:36 AM CDT) Pathologist [facility] HEPATITIS C ANTIBODY Non-React jovanni Non-React jovanni 08/26/2021 7:14 PM CDT [facility] Comment:Antibodies to HCV no t detected; does not exclude the possibility of exposure to HCV. Blood BLOOD SPECIMEN / Unknown Venipuncture / Unknown 08/26/2021 10:36 AM CDT 08/26/2021 10:37 AM CDT us Lyndon Spivey MD SEND OUTS Final Result [facility] [address] [place] [address], from Last 3 Months or Most Recently Relevant to Health Maintenance Additional Health Concerns Infection Onset Date Last Indicated MRSA Comment:MRSA positive left breast-Contact Precautions indicated. 05/30/2012 05/30/2012 Insurance [place] Advance Directives * Full Code (Latest Code Status on File) Date Activated Date Inactivated Comments 02/22/2011 7:03 PM 02/24/2011 12:28 PM Care Teams Refrigeration Tech Relationship Specialty Start Date End Date Lyndon Spivey MD [address] [place] [address] PCP - General Family Practice 08/23/15 Dorothy Santiago MD [address] [place] [address] Hematology Hematology and Oncology 05/27/20 Monika Gamez, ZAKIA [address] [place] [address] Hematology Nurse Practitioner - Family 05/27/20 Chioma Salcido MBBS [address] [facility] [[email or web address]] [address] [place] [address] Endocrinology 07/21/23
== END 2024-12-26 08:41 | disposition home or self-care (01) ==
PROVIDERS: PCP Family Medicine; Visit Provider Orthopaedic Surgery Orthopaedic Surgery of the Spine
DX: M54.6 Pain in thoracic spine (principal); M54.50 Low back pain, unspecified; Z74.09 Other reduced mobility; M62.81 Muscle weakness (generalized); Z51.89 Encounter for other specified aftercare
CPT/HCPCS: 97032; 97110; 97112; 97140; 97161; 97530

== ENCOUNTER 2025-02-20 17:07 | Emergency (ER) | payer BC, SELFPAY ==
[2025-02-20 17:12] VITALS: BP 145/90; PULSE 119; RESP 20; TEMP 38.7; O2SAT 93; BMI 27.4
--- NOTE | 2025-02-20 17:25 | CRLHL7_ITS ---
For Patients: As a result of the Cures Act, medical imaging exams and procedure reports are released immediately into your electronic medical record. You may view this report before your referring provider. If you have questions, please contact your health care provider. INDICATION: Fever TECHNIQUE: Chest radiograph 2 views COMPARISON: 10/27/2018 FINDINGS: The sensitivity and specificity of the exam are moderately limited by the patient`s body habitus. Mediastinum: The mediastinum is normal in appearance. The heart silhouette is normal in size and morphology. Lung: Small lung volumes are present with reticulonodular infiltrates seen in the left lower lung zone. No sign of pleural effusion seen. No pneumothorax is identified. Bone and Soft tissue: Nick stabilization of the cervicothoracic spine is partially visualized but similar to prior exam. IMPRESSION: 1. Small lung volumes are present with reticulonodular infiltrates seen in the left lower lung zone. Dictated by Obed Esqueda MD @ 02/20/2025 5:48:34 PM Dictated by: Obed Esqueda MD @ 02/20/2025 17:48:39 (Electronically Signed)
--- NOTE | 2025-02-20 17:28 | ED.FEVER ---
HPI - Fever General Chief Complaint: Fever Stated Complaint: high fever, weak, congested Time Seen by Provider: 02/20/25 17:12 History of Present Illness HPI Narrative: This 54-year-old female states that she began to feel ill yesterday and noted a sore throat and fever. She states that she mounted a fever up to around 103? F. She has been taking Tylenol and did take ibuprofen last evening. She states that she no longer has a sore throat. She does have some mild nasal congestion and does not have any cough. She states that she has a history of kidney stones and does report some pain in her low back but it is more central located pain. She does not report any symptoms of dysuria except she states that there has been less urine output recently. She arrives with tachycardia and temperature of a 101.7 ? F. She is not hypotensive. Related Data Home Medications ?Medication ?Instructions ?Recorded ?Confirmed Prilosec 02/22/24 Vitamin D (with calcium) 02/22/24 Previous Rx's ?Medication ?Instructions ?Recorded diazepam 10 mg tablet (Valium) 10 mg PO QHS PRN #10 tabs 02/22/24 diazepam 10 mg tablet (Valium) 10 mg PO QHS PRN #10 tabs 02/22/24 nirmatrelvir 300 mg (150 mg See Rx Instructions PO .COMPLEX 02/20/25 x2)-ritonavir 100 mg tablet,dose #30 ea pack (Paxlovid) Allergies Allergy/AdvReac Type Severity Reaction Status Date / Time No Known Drug Allergies Allergy Verified 02/22/24 17:20 Review of Systems Status of ROS Reports: 10 or more systems reviewed and unremarkable except as noted in History and below Narrative Constitutional: No weight gain or loss. Eyes: No discharge. No vision changes. HENT: No congestion, no ear pain. Cardiovascular: No chest pain, no palpitations. Respiratory: No shortness of breath, no wheezes, no cough. Gastrointestinal: No abdominal pain, no vomiting, no diarrhea. Genitourinary: No hematuria. Musculoskeletal: Normal range of motion. Skin: No rashes, no pruritis. Neurological: No dizziness, weakness, sensory change, speech change. Endo/Heme/Allergies: No bruising or bleeding. No polydipsia. Pysch: no suicidality, no anxiety, no insomnia. All other systems reviewed and are negative. PFSH PFSH Social History Smoking Status: Never smoker Do you use any of these nicotine containing products: None Second hand tobacco smoke exposure: No How often do you have a drink containing alcohol: never How often do you have six or more drinks on one occasion: Never AUDIT-C Alcohol total score: 0 Non-prescribed substance use: denies use service: No Exam Narrative Exam Narrative: Constitutional: Well-developed, well-nourished, no acute distress. HEENT: Normocephalic, atraumatic. Neck: Normal range of motion. Nontender. Supple. Heart: Regular. No murmurs. Tachycardia. Intact distal pulses. Lungs: Clear to auscultation. No chest discomfort. No wheezes, rhonchi, or rales. Abdomen: Normal bowel sounds. Nontender. No rebound tenderness. Genitalia: Deferred. Back: No midline tenderness. Normal range of motion. Extremities: Normal range of motion. No injury. Skin: Intact. No rash. Warm. No erythema or pallor. Neurologic: No altered sensation. No weakness. Alert and oriented. Psychiatric: No suicidality. No anxiety or depression. No insomnia. Nursing notes and vitals signs are reviewed. Const Vital Signs, click to edit/add: Vital Signs - 24 hr 02/20/25 17:12 Temperature 101.7 F H Pulse Rate [Pulse Oximeter] 119 H Respiratory Rate 20 Blood Pressure [Right Upper Arm] 145/90 H Pulse Oximetry 93 Oxygen Delivery Method Room Air Course Vital Signs Vital signs: Initial Vital Signs Temperature 101.7 F H 02/20/25 17:12 Temperature Source Temporal Artery Scan 02/20/25 17:12 Pulse Rate 119 H 02/20/25 17:12 Respiratory Rate 20 02/20/25 17:12 Blood Pressure 145/90 H 02/20/25 17:12 Blood Pressure Mean 108 H 02/20/25 17:12 Pulse Oximetry 93 02/20/25 17:12 Oxygen Delivery Method Room Air 02/20/25 17:12 Vital Signs Temperature 101.7 F H 02/20/25 17:12 Pulse Rate 119 H 02/20/25 17:12 Respiratory Rate 20 02/20/25 17:12 Blood Pressure 145/90 H 02/20/25 17:12 Pulse Oximetry 93 02/20/25 17:12 Oxygen Delivery Method Room Air 02/20/25 17:12 Temperature 101.7 F H 02/20/25 17:12 Pulse Rate 119 H 02/20/25 17:12 Respiratory Rate 20 02/20/25 17:12 Blood Pressure 145/90 H 02/20/25 17:12 Pulse Oximetry 93 02/20/25 17:12 Oxygen Delivery Method Room Air 02/20/25 17:12 Medications Administered Medications: Generic Name Dose Route Start Last Admin Trade Name Freq PRN Reason Stop Dose Admin Ondansetron HCl 4 mg 02/20/25 18:34 02/20/25 18:39 Ondansetron Odt 4 Mg Tab PO 02/20/25 18:35 4 mg ONCE ONE Administration Discontinued Medications Generic Name Dose Route Start Last Admin Trade Name Freq PRN Reason Stop Dose Admin Sodium Chloride 1,000 mls @ 1,000 mls/hr 02/20/25 17:30 02/20/25 18:08 0.9 % Sodium Chloride 1000 Ml IV 02/20/25 18:29 1,000 mls/hr .Q1H CLAUDIA Administration Ketorolac Tromethamine 30 mg 02/20/25 17:27 02/20/25 18:07 Ketorolac 30 Mg/Ml Inj IVP 02/20/25 17:28 30 mg ONCE ONE Administration MDM - Fever MDM Narrative Medical decision making narrative: This 54-year-old female comes in with fever and some mild upper respiratory symptoms that began yesterday. Chest x-ray is negative for infiltrate typical of pneumonia. Nasal pharyngeal swab returns positive for COVID. The patient is a candidate for Paxlovid so a prescription for this is provided. She did receive a dose of Toradol 30 mg intravenously. She also received a L of normal saline. She is not showing signs of sepsis. Her lactate level returns in normal range. Lab Data Labs: Lab Results 02/20/25 02/20/25 02/20/25 Range/Units 17:10 17:45 18:00 WBC 6.64 (4.50-11.00) K/uL RBC 4.75 (4.00-5.20) m/uL Hgb 14.8 (12.0-16.0) gm/dL Hct 41.9 (33.0-51.0) % MCV 88 (80-100) fL MCH 31 (26-34) pg MCHC 35 (32-36) gm/dL RDW Coeff of Andrews 13.0 (11.5-15.5) % Plt Count 205 (140-440) K/uL Neut % (Auto) 66.4 (42.0-72.0) % Lymph % (Auto) 20.6 (20-44) % [place] % (Auto) 12.2 H (0.0-11.0) % Eos % (Auto) 0.2 (0.0-7.0) % Baso % (Auto) 0.3 (0.0-3.0) % Neut # (Auto) 4.41 (1.7-7.0) K/uL Lymph # (Auto) 1.37 (0.90-2.90) K/uL [place] # (Auto) 0.80 (0.00-0.90) K/UL Eos # (Auto) 0.01 (0.00-0.50) K/uL Baso # (Auto) 0.02 (0.00-0.30) K/uL Abs Immat Gran (auto) 0.02 (0.00-0.30) K/uL Imm/Tot Granulo (auto) 0.3 % Lactate 1.0 (0.5-1.9) mmol/L Urine Color Yellow (Yellow) Urine Appearance Clear (Clear) Urine pH 5.5 (5.0-8.5) Ur Specific [place] 1.010 (1.000-1.030) Urine Protein Negative (Negative) Urine Glucose (UA) Negative (Negative) Urine Ketones Negative (Negative) Urine Blood Negative (Negative) Urine Nitrite Negative (Negative) Urine Bilirubin Negative (Negative) Urine Urobilinogen 0.2 (0.2-1.0) Ur Leukocyte Esterase Negative (Negative) Urine RBC 0-2 (0-2) Urine WBC 0-2 (0-5) Ur Squamous Epith Cells Few (None-Few) Urine Bacteria None (None) SARS-CoV-2 (PCR) POSITIVE SARS-CoV-2 A (Negative) Influenza Type A (PCR) Negative PCR FLU A (Negative) Influenza Type B (PCR) Negative PCR FLU B (Negative) RSV (PCR) Negative PCR RSV (Negative) Imaging Data Chest x-ray: Radiologist's impression: Small lung volumes are present with reticulonodular infiltrates seen in the left lower lung zone. Discharge Plan Discharge Clinical Impression: COVID-19 Patient Disposition: Home, Self-Care Condition: Stable Additional Instructions: Take medication as prescribed. Use [id number] medicines also as needed and directed. Follow up with MD return if worsening. Prescriptions: New Paxlovid 300 mg (150 mg x 2)-100 mg tablets,dose pack See Rx Instructions .ROUTE .COMPLEX Qty: 30 0RF Rx Instructions: take TWO 150 mg tablets of nirmatrelvir with ONE 100 mg tablet of ritonavir twice daily for 5 days No Action Prilosec Vitamin D (with calcium) diazepam [Valium] 10 mg tablet 10 mg PO QHS PRNQty: 10 0RF diazepam [Valium] 10 mg tablet 10 mg PO QHS PRNQty: 10 0RF Follow Up/Referrals: Lyndon Spivey MD [Primary Care Provider] - Stand Alone Forms: [employer] Info Instructions
[2025-02-20 17:57] LABS: PCR FLU A Negative PCR FLU A (Negative); PCR FLU B Negative PCR FLU B (Negative); PCR RSV Negative PCR RSV (Negative); SARS PCR* POSITIVE SARS-CoV-2 (Negative)
[2025-02-20] MEDS: KETOROLAC 30 MG/ML inj IVP (18:07)
[2025-02-20] MEDS: 0.9 % SODIUM CHLORIDE 1000 ml 1,000 ML IV (18:08)
--- OUTSIDE RECORDS SUMMARY | 2025-02-20 18:12 | XMS_ITS | Clinical Summary ---
Author Organization [facility] Address [address] [place] [address] Care Team Providers Care Money Room Teller Name Role Phone Lyndon Spivey MD Primary Care Provider [phone] Source Comments You are receiving this document as you are listed as the primary care provider,follow-up provider, or the patient has been referred to you for consultation.This is in compliance with the Medicare and[facility] Centercaid EHR Incentive Program,which states Providers who transition their patient to another setting of careor provider of care or refers their patient to another provider of care shouldprovide summary care record for each transition of care or referral. [facility] Allergies Active Allergy Reactions Criticality Noted Date Comments Escitalopram Oxalate Other, see comments 2002 PN: Dizziness, sweating Gabapentin Hives 09/13/2015 Oxycodone-Acetaminophen Nausea And Vomiting 12/2002 Medications fluticasone (AKA FLONASE) 50 MCG/ACT nasal solutionIndicat ions:Nausea alone Place 2 sprays into each nostril daily (every 24 hours). 48 g 1 5 Active Additional Information Patient not taking.Reported on 01/01/2020 omeprazole (PRILOSEC) 20 MG capsule TAKE 1 CAPSULE BY MOUTH DAILY(EVERY 24 HOURS) 90 capsule 0 5 Active ondansetron (AKA ZOFRAN) 4 MG tabletIndicatio ns:[place] WAN Fri Sep 13, 2015 3:17 PM Received from: [facility] Take 4 mg by mouth. 1 Active HYDROcodone-gina taminophen (NORCO) 5-325 MG tablet Take 1-2 tablets by mouth every 6 hours as needed for Pain. 12 tablet 0 5 Active Additional Information Patient not taking.Reported on [...] (70 mg) by mouth once every week. 3 Active VITAMIN B COMPLEX-C OR Active Active Problems Problem Noted Date Diagnosed Date Ureteral stone 10/19/2019 Overview (10/19/2019): Added automatically from request for surgery [id number] Ureterolithiasis 10/13/2019 Overview (10/13/2019): Added automatically from request for surgery [id number] Tobacco use 09/13/2015 Urinary urgency 06/14/2014 Chronic [...] (06/16/2017): LW Onset: 2002 ; Pain Leg Immunizations Immunization Administration Dates Next Due Flu Vac Preserv [...] alcohol) Alcoholic Drinks/day: Amount:1-2 drinks; Freq:=< Monthly; Comments No Sex and Gender Information Value Date Recorded Sex Assigned at Not on file Legal Sex Female 10:32 AM CDT Gender Identity Not on file Sexual Orientation Not on file Occupation Industry Job Start Date Job End Date Not on file Not on file Not on file Not on file Last Filed Vital Signs Vital Sign Reading Time Taken Comments Blood Pressure 151/87 10/26/2024 5:31 PM SECURITY DELIVERY SPECIALIST Pulse 94 10/26/2024 5:31 PM SECURITY DELIVERY SPECIALIST Temperature 37.2 C (98.9 F) 10/26/2024 5:31 PM SECURITY DELIVERY SPECIALIST Respiratory Rate 18 10/26/2024 5:31 PM SECURITY DELIVERY SPECIALIST Oxygen Saturation 99% 10/26/2024 5:31 PM SECURITY DELIVERY SPECIALIST Inhaled Oxygen Concentration - - Weight 66.7 kg (147 lb) 10/19/2019 10:43 AM SECURITY DELIVERY SPECIALIST Height 154.9 cm (5' 1) 10/19/2019 10:43 AM SECURITY DELIVERY SPECIALIST Body Mass Index 27.78 10/19/2019 10:43 AM SECURITY DELIVERY SPECIALIST Plan of Treatment Health Maintenance Due Date Last Done Comments Tuberculosis Screening 1969 Hep B Screening ([employer] Wizard) 1970 HIV Screening (Preventive Services) 1985 Adult Preventive Visit 1987 HepB Vaccine (1) 1988 Colonoscopy 06/15/2016 06/15/2011 (Completed) Cervical Cancer Screening 09/13/20182014, 09/13/2015, 07/24/2014, Additional history exists Pneumococcal Vaccine 50+ Yrs (1 of 1 - PCV) 2019 Cholesterol 07/24/2019 07/24/2014, 04/25, 02/25/2012, Additional history exists Mammogram 09/16/2023 09/16/2022, 08/26, 08/27/2020, Additional history exists Influenza Vaccine (#1) 2024 , 07/23/2020, 08/14/2019, Additional history exists DTaP/Tdap/Td Vaccine (3 - Tdap) 07/24/2024 07/24/2014, 02/21/2008 Hep C Screening (Preventive Services) Completed 07/15/1999 Zoster/Shingles Vaccine Completed 11/24/2019, 04/28 COVID-19 Vaccine Completed 09/04/2024, 11/2022, 07/18/2022, Additional history exists HepA Vaccine Aged Out No longer eligi ble based on patient's age to complete this topic Hib Vaccine Aged Out No longer eligi ble based on patient's age to complete this topic IPV (Polio) Vaccine Aged Out No longe r eligible based on patient's age to complete this topic MCV4 Vaccine Aged Out No longer eligi ble based on patient's age to complete this topic Meningococcal B Vaccine Aged Out No l onger eligible based on patient's age to complete this topic Medical Devices Implanted Type Area Launderette Attendant Device Identifier Shelf Expiration Date Model / Serial / Lot Stent Ureteral [place] 6fr 24cm - [id number] Implanted:Qty: 1 on 10/13/2019 by Lino John MD at [facility] DEVICE Right: [employer] 11/02/2023 [id number] / 0000 / [id number] Stent Ureteral Inlay 6fr 24cm - [id number] Implanted:Qty: 1 on 11/09/2019 by Lino John MD at [facility] DEVICE Right: [employer] 10/07/2023 [id number] / / [id number] Procedures Procedure Name Priority Date/Time Associated Diagnosis Comments MM MAMMOGRAM SCREENING BILAT W CAD Routine 10/17/2015 11:12 AM SECURITY DELIVERY SPECIALIST Breast screening ANATOMICAL PATH LIQUID BASED Routine 09/13/2015 3:41 PM SECURITY DELIVERY SPECIALIST LIPID PANEL & DIRECT LDL (IF NEEDED) Routine 07/24/2014 11:21 AM CDT Screening for lipoid disorders HEPATITIS C ANTIBODY, WITH REFLEX Routine 07/15/1999 5:31 PM CDT from Last 3 Months or Most Recently Relevant to Health Maintenance Results * MM Mammogram Screening Bilat W CAD (10/17/2015 11:12 AM SECURITY DELIVERY SPECIALIST) Anatomical Region Laterality Modality Breast Bilateral Mammography Impressions 10/17/2015 11:14 AM SECURITY DELIVERY SPECIALIST : BI-RADS 1 Negative (overall) Follow Up Mammogram in 1 year - Bilateral The results and recommendations of this examination will be communicated to the patient by the [facility] and we will attempt to schedule any recommended imaging follow up with the patient. Narrative 10/17/2015 11:14 AM SECURITY DELIVERY SPECIALIST Compared to: 05/31/2013 MM Mammogram Screening Bilateral [...] be communicated to the patient by the [facility] and we will attempt to schedule any recommended imaging follow up with the patient. us Royce Nava MD RAD KRISTIN Final Result * Pap Smear (09/13/2015 3:41 PM SECURITY DELIVERY SPECIALIST) 09/13/2015 3:41 PM SECURITY DELIVERY SPECIALIST Narrative HP CONVERSION - 09/23/2015 3:54 PM SECURITY DELIVERY SPECIALIST FINAL GYNECOLOGICAL CYTOLOGY REPORT Pathology #: [id number] Date Obtained: 09/13/2015 Date Received: 09/16/2015 INTERPRETATION/RESULTS: [...] may occur. End of Report Performed at [facility], [address] [place] [id number] Transcriptions 12/03/2016 12:17 AM CSTNotes Recorded by Ainsley Watkins RN on 10/04/2015 at 11:50 AMDear Niurka,I am [...] test results, callCervical Cancer Screening and Management [id number],Ainsley Watkins RN on behalf ofDr. Shantel Clark, Medical DirectorJohnson Memorial Hospital And [facility] Cervical Cancer Screening and Management us Royce Nava MD LAB_1 Final Result HP CONVERSION * (ABNORMAL) Lipid Panel and [...] 1 AM CDT 07/24/2014 3:14 PM CDT us Kin Isaac MD LAB_1 Final Result HP CONVERSION * Hepatitis C Antibody, with Reflex (07/15/1999 5:31 PM CDT) Hepatitis C Antibody Non Reac Non Reac HP CONVERSION 07/15/1999 5:31 PM CDT us Nicolas Robles MD LAB_1 Final Resul t HP CONVERSION from Last 3 Months or Most Recently Relevant to Health Maintenance Insurance [facility] STATE Advance Directives * Full Code (Latest Code Status on File) Date Activated Date Inactivated Comments 10/13/2019 1:30 PM 10/14/2019 2:34 PM Care Teams Money Room Teller Relationship Specialty Start Date End Date Lyndon Spivey MD [address] [place] [address] PCP - General 09/13/15
[2025-02-20 18:13] LABS: Basophils Absolute Auto 0.02 K/uL (0.00-0.30); Basophils Percent Auto 0.3 % (0.0-3.0); Eosinophils Absolute Auto 0.01 K/uL (0.00-0.50); Eosinophils Percent Auto 0.2 % (0.0-7.0); Hematocrit 41.9 % (33.0-51.0); Hemoglobin* 14.8 gm/dL (12.0-16.0); Immature Granulocytes Abs Auto 0.02 K/uL (0.00-0.30); Immature Granulocytes Pct Auto 0.3 %; Lymphocytes Absolute Auto 1.37 K/uL (0.90-2.90); Lymphocytes Percent Auto 20.6 % (20-44); Mean Corpuscular HGB Conc 35 gm/dL (32-36); Mean Corpuscular Hemoglobin 31 pg (26-34); Mean Corpuscular Volume 88 fL (80-100); Monocytes Percent Auto 12.2 % (0.0-11.0); Neutrophils Absolute Auto 4.41 K/uL (1.7-7.0); Neutrophils Percent Auto 66.4 % (42.0-72.0); Platelet Count* 205 K/uL (140-440); Red Blood Count 4.75 m/uL (4.00-5.20); White Blood Count* 6.64 K/uL (4.50-11.00)
[2025-02-20 18:16] LABS: Slide Review Reflex No
[2025-02-20 18:21] LABS: Appearance Urine Clear (Clear); Bilirubin Urine Negative (Negative); Blood Urine Negative (Negative); Color Urine Yellow (Yellow); Glucose Urine Negative (Negative); Ketones Urine Negative (Negative); Leukocyte Esterase Urine Negative (Negative); Nitrite Urine Negative (Negative); Protein Urine Negative (Negative); Urobilinogen Urine 0.2 (0.2-1.0); pH Urine 5.5 (5.0-8.5)
[2025-02-20 18:24] LABS: RBC Urine 0-2 (0-2); Squamous Epithelial Cell Urine Few (None-Few); WBC Urine 0-2 (0-5)
[2025-02-20 18:28] VITALS: PULSE 110; O2SAT 95
[2025-02-20 18:30] VITALS: PULSE 110; O2SAT 96
[2025-02-20] MEDS: ONDANSETRON ODT 4 MG TAB PO (18:39)
[2025-02-20 18:45] VITALS: PULSE 104; O2SAT 95
[2025-02-20] MEDS: dexAMETHasone 4 MG/ML VIAL 10 MG IV (18:59)
[2025-02-20 19:00] VITALS: PULSE 102; O2SAT 93
== END 2025-02-20 19:30 | disposition home or self-care (01) ==
PROVIDERS: Family Medicine; Emergency Provider Emergency Medicine Emergency Medical Services; PCP Family Medicine
DX: U07.1 COVID-19 (principal)
CPT/HCPCS: 36415; 71046; 81001; 83605; 85025; 87040; 87631; 96374; 99284; A9270; J1100; J1885; J7030